=== PATIENT | male | born 1980 | race Caucasian/White ===

== ENCOUNTER 2017-09-13 17:09 | Emergency (ER) | payer SELFPAY ==
[~2017-09-13] VITALS: Ht 152.4 cm; Wt 64.4 kg
[2017-09-13 17:27] VITALS: BP 125/85
--- NOTE | 2017-09-13 18:12 | NUR ---
PT TO ER BED 1
--- NOTE | 2017-09-13 18:15 | NUR ---
37 M BIB SELF WITH REDNESS, SWELLING, AND 9/10 "SHARP" PAIN TO LEFT EYELID X 3 DAYS; DENIES INJURY; LAST WEEK PT STATES RIGHT BOTTOM EYELID HAD SAME PROBLEM; DENIES VISUAL CHANGES/ DISTURBANCES; PT IS AOX4, WITH STEADY GAIT; RR ARE EVEN AND UNLABORED; NAD; WILL CONTINUE TO [facility].
--- NOTE | 2017-09-13 19:28 | NUR ---
Pt report given to Florinda GAMA. Transfer of care at this time.
[2017-09-13] MEDS ORDERED: NACL 0.9% 1,000 ML IV SCH (19:42)
[2017-09-13] MEDS ORDERED: PIPERACILLIN/TAZOBACTAM 3.375 GM in DEXT 5% MINI-BAG PLUS 50 ML IV ONE (19:45)
[2017-09-13] MEDS ORDERED: VANCOMYCIN 1,000 MG in DEXTROSE 5% 250 ML IV ONE (19:45)
[2017-09-13 20:25] LABS: BASOPHILS # (AUTO) 0.5 K/uL (0.00-0.22); BASOPHILS % (AUTO) 4.5 % (0.0-2.0); EOSINOPHILS # (AUTO) 0.1 K/uL (0-0.4); EOSINOPHILS % (AUTO) 1.4 % (0.0-4.0); HEMATOCRIT 47.4 % (36-52); HEMOGLOBIN 16.2 g/dL (12.0-18.0); LYMPHOCYTES # (AUTO) 2.6 K/uL (2.0-11.5); LYMPHOCYTES % (AUTO) 25.5 % (20.5-51.1); MEAN CORPUSCULAR HEMOGLOBIN 30 pg (27-31); MEAN CORPUSCULAR HGB CONC 34 g/dL (33-37); MEAN CORPUSCULAR VOLUME 88 fL (80-94); MONOCYTES # (AUTO) 0.7 K/uL (0.8-1.0); MONOCYTES % (AUTO) 6.8 % (1.7-9.3); NEUTROPHILS # (AUTO) 6.2 K/uL (1.8-7.7); NEUTROPHILS % (AUTO) 61.8 % (42.2-75.2); PLATELET COUNT (AUTO) 236 K/uL (140-450); RED CELL DISTRIBUTION WIDTH 11.9 % (11.6-13.7); WHITE BLOOD COUNT (AUTO) 10.1 K/uL (4.8-10.8)
[2017-09-13 20:28] LABS: ANION GAP 10.4 (8-16); CARBON DIOXIDE 29.2 mmol/L (21-32); CREATININE 0.8 mg/dL (0.7-1.3); POTASSIUM 3.6 mmol/L (3.5-5.1)
[2017-09-13 20:33] LABS: ALBUMIN 3.7 g/dL (3.4-5.0); TOTAL BILIRUBIN 0.3 mg/dL (0.0-1.0)
[2017-09-13] MEDS ORDERED: VANCOMYCIN 1,000 MG VIAL ONE ×2 (20:39→21:35)
[2017-09-13] MEDS ORDERED: PIPERACILLIN/TAZOBACTAM 3.375 GM VIAL IV ONE (20:39)
[2017-09-13 20:46] LABS: APPEARANCE,URINE CLEAR (CLEAR); BILIRUBIN,URINE NEGATIVE (NEGATIVE); BLOOD, URINE NEGATIVE (NEGATIVE); COLOR,URINE YELLOW (YELLOW); LEUKOCYTE ESTERASE ,URINE NEGATIVE (NEGATIVE); NITRITE, URINE NEGATIVE (NEGATIVE); UGLUCOSE NEGATIVE (NEGATIVE)
[2017-09-13 23:52] VITALS: BP 109/65
--- NOTE | 2017-09-13 23:53 | NUR ---
Patient discharged with v/s stable. Written and verbal after care instructions given and explained. Patient alert, oriented and verbalized understanding of instructions. Ambulatory with steady gait. All questions addressed prior to discharge. ID band removed. Patient advised to follow up with PMD. Rx of clindamycin, doxycycline given. Patient educated on indication of medication including possible reaction and side effects. Opportunity to ask questions provided and answered.
== END 2017-09-13 23:53 | disposition home or self-care (01) ==
LOC: MED 17:09
DX: H00.14 Chalazion left upper eyelid (principal); H00.12 Chalazion right lower eyelid
CPT/HCPCS: 36415; 70480; 80053; 81003; 83605; 85025; 87040; 87086; 96365; 96366; 96367; 99285; J2543; J3370; J7060

== ENCOUNTER 2019-01-26 12:39 | Emergency (ER) | payer OTHER ==
[~2019-01-26] VITALS: Ht 152.4 cm; Wt 61.7 kg
[2019-01-26 12:40] VITALS: BP 128/63
--- NOTE | 2019-01-26 12:45 | NUR ---
PT AMBULATED TO BED 5
--- NOTE | 2019-01-26 13:14 | NUR ---
CONDUCTED EYE ASSESMENT PER VERBAL ORDER, RIGHT EYE 20/20, LEFT EYE 20/30, BOTH EYES 20/25
--- NOTE | 2019-01-26 13:18 | NUR ---
Dr. Montemayor evaluating patient at bedside.
[2019-01-26 13:31] VITALS: BP 128/63
--- NOTE | 2019-01-26 13:31 | NUR ---
Patient discharged with v/s stable. Written and verbal after care instructions given and explained. Patient alert, oriented and verbalized understanding of instructions. Ambulatory with steady gait. All questions addressed prior to discharge. ID band removed. Patient advised to follow up with PMD. Rx of TOBRAMYCIN, KEFLEX, AND NAPROSYN given. Patient educated on indication of medication including possible reaction and side effects. Opportunity to ask questions provided and answered.
== END 2019-01-26 13:31 | disposition home or self-care (01) ==
LOC: MED 12:39
DX: H00.015 Hordeolum externum left lower eyelid (principal)
CPT/HCPCS: 99283